=== PATIENT | female | born 1980 | race Caucasian/White ===

== ENCOUNTER 2024-07-30 20:41 | Emergency (ER) | payer BC, OTHER, SELFPAY ==
--- NOTE | ~2024-07-30 | CT_ITS ---
CLINICAL HISTORY: Diffuse ABD pain, bloated, R O bowel obstruct CT abdomen and pelvis with contrast Comparison: None Findings: The lung bases are clear. The liver, gallbladder, pancreas, spleen, adrenal glands, and kidneys are unremarkable. The appendix is normal. There is a moderate amount of stool in the colon. There is no bowel obstruction. Patient is status post ventral hernia repair. There is an incidental small corpus luteal cyst in the right ovary. There is trace free fluid in the cul-de-sac almost certainly physiologic. The aorta is normal in diameter. IVC is widely patent. There are no enlarged lymph nodes. There is no fracture or suspicious lytic or sclerotic lesion. IMPRESSION: No acute abnormality in the abdomen or pelvis. This document has been electronically signed by: Rico Kulkarni MD on 07/31/2024 04:32:20
[2024-07-30 20:45] VITALS: BP 130/78; PULSE 85; RESP 16; TEMP 36.7; O2SAT 99; BMI 32.1
--- NOTE | 2024-07-30 20:45 | ED_ITS ---
HPI - Abdominal Pain General Chief Complaint: Abdominal Pain Stated Complaint: abd pain,bloating Time Seen by Provider: 07/30/24 23:23 Source: patient Mode of arrival: ambulatory Limitations: no limitations History of Present Illness ED Provider: Dr. Ren Gaines HPI narrative: 44-year-old female with a history of asthma, GERD, hypothyroidism, umbilical hernia repair 3 years prior, bilateral tubal ligation 2009 who presents to the emergency department for evaluation of abdominal pain, bloated sensation, decreased bowel movements. Patient states that she had a sudden onset of abdominal pain at 01:00 hours on 07/25/2024 (6 days prior to evaluation). She states that the pain was located in her lower abdomen. She states that the pain has been constant but waxes and wanes in intensity. She states the pain is now become diffuse. She states she feels bloated as if she was filled with a gas. Patient had nausea with no vomiting. She states that she normally has 6- 10 loose stools per day hard bowel movements, 1 to 2 times a day. Patient does have a history of GERD and she states that her reflux symptoms have acted up despite taking her omeprazole. She denied fever or chills. She denied frequency or dysuria. She states that she always has stomach pain but this is different than her previous episodes of stomach pain. Related Data Allergies Allergy/AdvReac Type Severity Reaction Status Date / Time No Known Allergies Allergy Verified 07/30/24 20:48 Review of Systems Review of Systems Yes all other systems are reviewed and are negative [facility] Past Medical History [facility] Narrative: Social history: The patient does smoke 1/2-1 pack of cigarettes per day times 30 years. She denies alcohol and drug use. Social History Social History Substance Use Type: Marijuana Physical Exam ED Vital Signs: Vital Signs - 24 hr 07/30/24 20:45 07/31/24 00:31 07/31/24 04:00 Temperature 98.1 F 97.9 F 97.3 F Pulse Rate 85 61 81 Respiratory Rate 16 16 16 Blood Pressure 130/78 114/66 99/63 Pulse Oximetry 99 99 97 Oxygen Delivery Method Room Air Room Air Room Air BMI result Body Mass Index 32.1 Vital signs were normal Exam: General: Awake, alert in no distress, weight was 92.9 kg, elevated BMI of 32.1 kg per m2 Head: Normocephalic, atraumatic EENT: PERRL, Lids normal, sclera normal, conjunctiva normal, nose normal , ears normal, throat without erythema or exudates Neck: Supple, no adenopathy Lung: breath sounds symmetric, no wheezing, rales or rhonchi Chest: symmetric movement, nontender Heart: regular rate and rhythm, normal S1, S2 no murmurs or rubs Abdomen: soft, appears distended, normoactive bowel sounds, mild diffuse tenderness, no rebound, no voluntary or involuntary guarding Back: no vertebral tenderness, no CVAT Extremities: no deformities, moves all extremities symmetrically Neuro: Awake, alert, oriented, normal speech Psych: Pleasant, cooperative Course Course Course Narrative: This is a Rapid Medical Exam performed in triage by Cass Jay PA-C. Full HPI, ROS and PE to be performed by primary ED provider. 44yo F presenting to the ED c/o acute on chronic abdominal pain, distention/bloating & constipation. Last BM today but not normal for patient. +nausea. denies fever, vomiting PE: abdomen soft & nontender. No rebound or guarding Plan: labs, UA Medical Decision Making Medical Decision Making MDM Narrative: 44-year-old female with a history of asthma, GERD, hypothyroidism, umbilical hernia repair 3 years prior, bilateral tubal ligation 2009 who presents to the emergency department for evaluation of abdominal pain, bloated sensation, decreased bowel movements x6 days. Vital signs were normal. Abdomen appears to be distended with diffuse abdominal tenderness with normal bowel sounds. Differential diagnosis: ?Includes but is not limited to small-bowel obstruction, partial small-bowel obstruction, large bowel obstruction, pancreatitis, diverticulitis, gastritis, GERD, electrolyte abnormalities, anemia, urinary tract infection Course: 00:20 My independent interpretation patient's laboratory evaluation is as follows: WBC was normal 7300. Normocytic anemia with an H&H of 11.6 and 34.1 with an MCV of 89.5. CMP was normal. Lipase was normal. Urine test was negative. Urinalysis was negative. Given the patient's presentation I did order a CT scan of the abdomen pelvis with both IV and oral contrast to rule out possible bowel obstruction/partial bowel obstruction as the cause of her symptoms. 05:35 CT scan did not reveal an obvious cause for symptoms which is reassuring. I did discuss this finding with the patient. At this time I believe that the patient may be constipated. She was advised to take Metamucil daily and extra-strength Senokot 1 pill twice a day for 4 days. She was given printed and verbal instructions and discharged home. Admission/Observation Consideration of admission/observation: Escalation of care including admission/observation considered (Yes) Lab Data MDM Lab Attestation statement: I reviewed the patient's lab results. 07/30/24 21:18 07/30/24 21:18 Labs: Lab Results 07/30/24 07/30/24 Range/Units 21:18 21:51 WBC 7.3 (4.8-10.8) X10*3/uL RBC 3.81 L (4.20-5.50) X10*6/uL Hgb 11.6 L (12.0-16.0) g/dl Hct 34.1 L (37.0-47.0) % MCV 89.5 (80.0-98.0) fL MCH 30.4 (27.0-33.0) pg MCHC 34.0 (31.0-35.0) g/dl RDW 13.4 (11.0-16.0) % Plt Count 214 (160-400) X10*3/uL MPV 9.3 L (9.4-12.3) fL Immature Gran % (Auto) 0.3 (0.0-0.4) % Neut % (Auto) 51.2 (45-73) % Lymph % (Auto) 34.3 (20-40) % Henderson % (Auto) 7.4 (2-11) % Eos % (Auto) 6.1 H (0-4) % Baso % (Auto) 0.7 (0-2) % Lymph # (Auto) 2.5 (1.2-4.9) X10*3/uL Henderson # (Auto) 0.5 (0.1-1.2) X10*3/uL Eos # (Auto) 0.5 H (0.0-0.4) X10*3/uL Baso # (Auto) 0.1 (0.0-0.2) X10*3/uL Abs Immat Gran (auto) 0.02 (0.00-0.03) X10*3/uL Absolute Neuts (auto) 3.8 (2.0-8.3) x10*3/uL Absolute Nucleated RBC 0.000 (0.0-0.012) X10*3/uL Nucleated RBC % (auto) 0.0 (0.0-0.2) /100WBC Sodium 141 (135-145) mmol/L Potassium 4.3 (3.3-5.1) mmol/L Chloride 107 (96-108) mmol/L Carbon Dioxide 27 (22-29) mmol/L Anion Gap 11 L (12-20) BUN 13 (9-16) mg/dL Creatinine 1.02 (0.5-1.4) mg/dL Estim Creat Clear Calc 81.4 Estimated GFR 59 Random Glucose 102 (60-115) mg/dL Calcium 9.7 (8.4-10.2) mg/dL Magnesium 2.0 (1.6-2.6) mg/dL Total Bilirubin 0.5 (0.0-1.0) mg/dL Direct Bilirubin 0.1 (0.0-0.5) mg/dL AST 27 (5-31) U/L ALT 29 (0-31) U/L Alkaline Phosphatase 69 (39-117) U/L Total Protein 7.2 (6.5-8.0) g/dL Albumin 4.2 (3.5-5.0) g/dL Lipase 33 (8-78) U/L Urine Color Yellow Urine Appearance Clear Urine pH 7.0 (5.0-9.0) Ur Specific Lingle <= 1.005 (1.005-1.025) Urine Protein Negative (Neg-Trace) mg/dL Urine Glucose (UA) Negative (Negative) mg/dL Urine Ketones Negative (Negative) mg/dL Urine Blood Negative (Negative) Urine Nitrite Negative (Negative) Ur Leukocyte Esterase Negative (Negative) Urine Test NEGATIVE (NEGATIVE) Radiology Impression Discussion of test interpretation with radiology: I have reviewed the radiologist's reading. Radiologist Impression: CT abdomen and pelvis with contrast Comparison: None Findings: The lung bases are clear. The liver, gallbladder, pancreas, spleen, adrenal glands, and kidneys are unremarkable. The appendix is normal. There is a moderate amount of stool in the colon. There is no bowel obstruction. Patient is status post ventral hernia repair. There is an incidental small corpus luteal cyst in the right ovary. There is trace free fluid in the cul-de-sac almost certainly physiologic. The aorta is normal in diameter. IVC is widely patent. There are no enlarged lymph nodes. There is no fracture or suspicious lytic or sclerotic lesion. IMPRESSION: No acute abnormality in the abdomen or pelvis. This document has been electronically signed by: Rico Kulkarni MD on 07/31/2024 04:32:20 Chronic Conditions Patient?s care impacted by: Other ( Asthma, GERD) Medications Administered Discontinued Medications Generic Name Dose Route Start Last Admin Trade Name Freq PRN Reason Stop Dose Admin Diatrizoate Meglum/Diatrizoate Sod 30 ml 07/31/24 01:10 07/31/24 01:10 Diatrizoate Meglumine, Sodium 30 Ml Solution PO 07/31/24 01:11 30 ml ONCE ONE Administration Sodium Chloride 1,000 mls @ 999 mls/hr 07/31/24 00:07 07/31/24 02:34 Ns IV 07/31/24 01:07 Infused .Q1H1M STA Infusion Iohexol 85 ml 07/31/24 02:55 07/31/24 02:55 Iohexol 350 Mg/Ml 100 Ml Infus..Btl IV 07/31/24 02:56 85 ml ONCE ONE Administration Discharge Plan Discharge Clinical Impression: Abdominal pain, Abdominal distension, Constipation Patient Disposition: Home, Self-Care Instructions: Constipation (ED) Additional Instructions: Your blood work was unremarkable except for mild anemia. The CT scan of your abdomen pelvis with both oral and IV contrast did not reveal a clear cause for your pain. Given your bloated sensation and your change in your bowel movements, I suspect that you may be constipated. Take Metamucil 1 tsp in 8 oz of water daily for the next 2 weeks. Take extra-strength Senokot, 1 pill twice a day for 4 days. This is a laxative and should help you move your bowels. Take ibuprofen 200 mg pills, 2 pills every 6 hours as needed for pain or fever. Take Tylenol (acetaminophen) 500 mg pills, 2 pills every 6 hours as needed for pain or fever. Follow-up with your doctor in 2 days. Please return to the emergency department if your symptoms get worse or if you develop any symptoms that are concerning to you. Interventions: ED Discharge Assessment Last Done: 02/02/25 05:46 Discharge Date/Time: 07/31/24 05:47 Print Language: Afghan
[2024-07-30 21:21] LABS: MANUAL DIFF FLAG NO
[2024-07-30 21:23] LABS: Basophils Absolute Auto 0.1 X10*3/uL (0.0-0.2); Basophils Percent Auto 0.7 % (0-2); Eosinophils Absolute Auto 0.5 X10*3/uL (0.0-0.4); Eosinophils Percent Auto 6.1 % (0-4); Hematocrit 34.1 % (37.0-47.0); Hemoglobin 11.6 g/dl (12.0-16.0); Imm Gran Abs Auto 0.02 X10*3/uL (0.00-0.03); Imm Gran Pct Auto 0.3 % (0.0-0.4); Lymphocytes Absolute Auto 2.5 X10*3/uL (1.2-4.9); Lymphocytes Percent Auto 34.3 % (20-40); Mean Corpuscular Hemoglobin 30.4 pg (27.0-33.0); Mean Corpuscular Volume 89.5 fL (80.0-98.0); Mean Platelet Volume 9.3 fL (9.4-12.3); Monocytes Absolute Auto 0.5 X10*3/uL (0.1-1.2); Monocytes Percent Auto 7.4 % (2-11); Neutrophils Absolute Auto 3.8 x10*3/uL (2.0-8.3); Neutrophils Percent Auto 51.2 % (45-73); Platelet Count 214 X10*3/uL (160-400); Red Blood Count 3.81 X10*6/uL (4.20-5.50); Red Cell Distribution Width 13.4 % (11.0-16.0); White Blood Count 7.3 X10*3/uL (4.8-10.8)
[2024-07-30 21:36] LABS: Alanine Aminotransferase 29 U/L (0-31); Albumin Level 4.2 g/dL (3.5-5.0); Alkaline Phosphatase 69 U/L (39-117); Anion Gap 11 (12-20); Aspartate Amino Transferase 27 U/L (5-31); Bilirubin Direct 0.1 mg/dL (0.0-0.5); Bilirubin Total 0.5 mg/dL (0.0-1.0); Blood Urea Nitrogen 13 mg/dL (9-16); Calcium 9.7 mg/dL (8.4-10.2); Carbon Dioxide 27 mmol/L (22-29); Chloride 107 mmol/L (96-108); Creatinine Clr Calc Pharmacy 81.4; Estimated Glomerular Filt Rate 59; Glucose Random 102 mg/dL (60-115); Lipase 33 U/L (8-78); Potassium 4.3 mmol/L (3.3-5.1); Sodium 141 mmol/L (135-145); Total Protein 7.2 g/dL (6.5-8.0)
[2024-07-30 22:02] LABS: Appearance Urine Clear; Color Urine Yellow; Glucose Urine UA Negative (Negative); Leukocyte Esterase Urine Negative (Negative); Nitrite Urine Negative (Negative); Specific Gravity - Urine <= 1.005 (1.005-1.025); Urine Blood Negative (Negative); Urine Ketones Negative (Negative); Urine Protein Negative (Neg-Trace)
[2024-07-30 22:04] LABS: UPreg QC Valid YES; Urine Pregnancy NEGATIVE (NEGATIVE)
[2024-07-31 00:31] VITALS: BP 114/66; PULSE 61; RESP 16; TEMP 36.6; O2SAT 99
[2024-07-31] MEDS: 0.9 % Sodium Chloride 1,000 ML 999 ML IV (00:31)
[2024-07-31] MEDS: Diatrizoate Meglumine, Sodium 30 ML SOLUTION PO (01:10)
[2024-07-31] MEDS: iohexoL 350 MG/ML 100 ML INFUS..BTL 85 ML IV (02:55)
[2024-07-31 04:00] VITALS: BP 99/63; PULSE 81; RESP 16; TEMP 36.3; O2SAT 97
[2024-07-31 05:46] VITALS: BP 99/63; PULSE 81; RESP 16; TEMP 36.3; O2SAT 97
== END 2024-07-31 05:47 | disposition home or self-care (01) ==
PROVIDERS: Physician Assistant; Emergency Provider Emergency Medicine Emergency Medical Services; PCP Internal Medicine
DX: K59.00 Constipation, unspecified (principal); R10.9 Unspecified abdominal pain; R14.0 Abdominal distension (gaseous); J45.909 Unspecified asthma, uncomplicated; E03.9 Hypothyroidism, unspecified
CPT/HCPCS: 36415; 74177; 80048; 80076; 81003; 81025; 83690; 83735; 85025; 96360; 96361; 99284; Q9967

== ENCOUNTER → 2024-07-31 02:45 | Outpatient (BNV) | payer BC, OTHER, SELFPAY | PROVIDERS: Emergency Provider Emergency Medicine Emergency Medical Services; PCP Internal Medicine; Visit Provider Radiology Diagnostic Radiology | DX: R10.9 Unspecified abdominal pain (principal); R14.0 Abdominal distension (gaseous) | CPT/HCPCS: 74177 ==